=== PATIENT | male | born 1965 | race Asian ===

== ENCOUNTER 2021-11-19 14:41 | Outpatient (CLI) | payer OTHER, SELFPAY ==
[2021-11-19 13:40] LABS: Albumin* 4.4 g/dL (3.3-5.0); Chloride* 102 mmol/L (96-114)
[2021-11-19 13:41] LABS: Potassium* 4.8 mmol/L (3.6-5.1); Sodium* 140 mmol/L (135-149)
[2021-11-19 13:43] LABS: Alkaline Phosphatase* 84 U/L (40-150); Aspartate Amino Transferase* 32 U/L (12-35); Bilirubin Total* 0.6 mg/dL (0.1-1.5); Blood Urea Nitrogen* 13 mg/dL (7-30); Carbon Dioxide* 32 mmol/L (20-32); Cholesterol* 171 mg/dL (90-199); Creatinine* 0.9 mg/dL (0.5-1.5); Estimated Glomerular Filt Rate 100 ml/min; Glucose* 109 mg/dL (60-115); Total Protein* 7.8 g/dL (6.0-8.3); Triglycerides* 81 mg/dL (40-149)
[2021-11-19 13:44] LABS: Alanine Aminotransferase* 27 U/L (4-50); Calcium* 9.6 mg/dL (8.4-10.6); HDL Cholesterol* 62 mg/dL (>=40); LDL Cholesterol Calculated 93 mg/dL (<100)
[2021-11-19 14:11] LABS: PSA Screen* 0.84 ng/mL (0.10-4.00)
== END 2021-11-19 14:42 | disposition home or self-care (01) ==
PROVIDERS: PCP Physician Assistant Medical; Visit Provider Physician Assistant Medical
DX: Z00.00 Encounter for general adult medical examination without abnormal findings (principal); E78.5 Hyperlipidemia, unspecified; K21.9 Gastro-esophageal reflux disease without esophagitis
CPT/HCPCS: 80053; 80061; 84153

== ENCOUNTER 2022-11-21 10:26 | Outpatient (CLI) | payer OTHER, SELFPAY | END 2022-11-21 10:27 | disposition home or self-care (01) | PROVIDERS: PCP Physician Assistant Medical; Visit Provider Physician Assistant Medical | DX: E78.2 Mixed hyperlipidemia (principal); Z12.5 Encounter for screening for malignant neoplasm of prostate | CPT/HCPCS: 80053; 80061; 84153 ==

== ENCOUNTER 2023-05-04 15:19 | Outpatient (CLI) | payer OTHER, SELFPAY | END 2023-05-04 15:20 | disposition home or self-care (01) | LOC: NFLDREF 05-06 11:15 | PROVIDERS: PCP Physician Assistant Medical; Referring Provider Physician Assistant Medical; Visit Provider Family Medicine | DX: R10.84 Generalized abdominal pain (principal) | CPT/HCPCS: 87338 ==

== ENCOUNTER 2023-12-17 07:56 | Outpatient (CLI) | payer BC, SELFPAY | END 2023-12-17 07:57 | disposition home or self-care (01) | PROVIDERS: PCP Physician Assistant Medical; Referring Provider Physician Assistant Medical; Visit Provider Physician Assistant Medical | DX: E78.2 Mixed hyperlipidemia (principal); R79.89 Other specified abnormal findings of blood chemistry; Z13.29 Encounter for screening for other suspected endocrine disorder; Z12.5 Encounter for screening for malignant neoplasm of prostate | CPT/HCPCS: 80053; 80061; 84403; 84443; G0103 ==

== ENCOUNTER 2025-01-23 07:23 | Outpatient (CLI) | payer BC, SELFPAY | END 2025-01-23 07:24 | disposition home or self-care (01) | LOC: NFLDREF 01-26 16:00 | PROVIDERS: PCP Physician Assistant Medical; Referring Provider Physician Assistant Medical; Visit Provider Physician Assistant Medical | DX: E78.2 Mixed hyperlipidemia (principal) | CPT/HCPCS: 80053; 80061; 84443; G0103 ==